=== PATIENT | female | born 1935 | race Caucasian/White ===

== ENCOUNTER → 2018-10-06 | Day surgery (SDC) | payer OTHER, MEDICARE ==
--- NOTE | 2018-10-11 10:58 | PATH ---
Surgical Pathology Report Patient Name: NEREYDA REEVES [facility]. Rec. #: [id number] /Age/Gender: 1935 (Age: 83) / F Account: [id number] Location: [facility] Taken: 10/06/2018 Received: 10/07/2018 Reported: 10/08/2018 Physicians: Roula Melissa M.D. Christophe Cristina M.D. Specimen(s) Received A: RIGHT AXILLA LYMPH NODE CORE BIOPSY B: LEFT AXILLA LYMPH NODE CORE BIOPSY Clinical History Nonpalpable lesion Ultrasound findings: Suspicious History of breast cancer Final Diagnosis A. AXILLA, LYMPH NODE, RIGHT, CORE BIOPSY: HETEROGENEOUS LYMPHOID TISSUE, NEGATIVE FOR CARCINOMA. IMMUNOHISTOCHEMICAL STAIN FOR CYTOKERATIN AE1/3 IS NEGATIVE. B. AXILLA, LYMPH NODE, LEFT, CORE BIOPSY: MINUTE FRAGMENTS OF LYMPHOID TISSUE IN A BACKGROUND OF SKELETAL MUSCLE AND FIBROADIPOSE TISSUE. NO CARCINOMA IDENTIFIED. IMMUNOHISTOCHEMICAL STAIN FOR CYTOKERATIN AE1/3 IS NEGATIVE. DEEPER LEVELS HAVE BEEN EXAMINED. Comment: Suggest clinical and radiologic correlation. Electronically Signed Louisa Corado M.D. Gross Description A. Received in formalin labeled "right axilla," are 2 voss-yellow, cylindrical portions of fibroadipose tissue averaging 1.0 cm in length and 0.1 cm in diameter. The specimens are submitted in toto in one cassette. B. Received in formalin labeled "left axilla," are 4 voss-yellow, cylindrical portions of fibroadipose tissue ranging from 0.2-0.6 cm in length and averaging 0.1 cm in diameter. The specimens are submitted in toto in one cassette. Time to formalin fixation: Less than one minute Total formalin fixation time: Approximately 28 hours. /10/07/2018 saudi10/07/2018
== END | disposition home or self-care (01) ==
LOC: JRADUS 12:37 → JRADUS-SUR 12:37
PROVIDERS: ATTEND Internal Medicine Hematology & Oncology
PROC: 07B63ZX Excision of Left Axillary Lymphatic, Percutaneous Approach, Diagnostic (ICD-10-PCS; principal; 2018-10-06)
PROC: 07B53ZX Excision of Right Axillary Lymphatic, Percutaneous Approach, Diagnostic (ICD-10-PCS; 2018-10-06)
DX: D36.0 Benign neoplasm of lymph nodes (principal); Z85.3 Personal history of malignant neoplasm of breast
CPT/HCPCS: 19083; 19084; 38505; 76942; 87899; 88305-TC; 88342-TC; A4648

== ENCOUNTER 2019-03-23 08:32 | Day surgery (SDC) | payer OTHER, MEDICARE ==
[2019-03-17 12:50] VITALS: BMI 22.8
[2019-03-23] MEDS: CIPROFLOXACIN 0.3% EYE DROPS 5 ML BOTTLE ONE ×3 (09:10→09:20)
[2019-03-23] MEDS: PHENYLEPHRINE 2.5% OPHTH SOLN 15 ML BOTTLE ONE ×3 (09:10→09:20)
[2019-03-23] MEDS: TROPICAMIDE 1% OPHTH SOLN 15 ML BOTTLE ONE ×3 (09:10→09:20)
[2019-03-23] MEDS: CYCLOPENTOLATE 2% OPHTH SOLN 2 ML BOTTLE ONE ×3 (09:10→09:20)
[2019-03-23] MEDS ORDERED: MIDAZOLAM HCL 2 MG/2 ML SINGLE DOSE VIAL ONE (10:26)
[2019-03-23] MEDS ORDERED: BSS (NA/CA/MG/K) BALANCED SALT SOLUTION OPHTH SOLN 15 ML BOTTLE ONE (10:28)
[2019-03-23] MEDS ORDERED: NEO/POLYMYX B SULF/DEXAMETH OPHTHALMIC 5ML BOTTLE ONE (10:28)
[2019-03-23] MEDS ORDERED: CARBACHOL 0.01% INTRA-OCULAR 1.5 ML VIAL ONE (10:28)
[2019-03-23 11:47] VITALS: TEMP 97.8
[2019-03-23 11:49] VITALS: BP 128/78; PULSE 77
--- NOTE | 2019-03-24 09:07 | OP ---
DATE OF OPERATION: 03/23/2019 OPERATIVE PROCEDURE: Lens phacoemulsification with posterior chamber intraocular lens placement, left eye. PREOPERATIVE DIAGNOSIS: Visually significant cataract of left eye. POSTOPERATIVE DIAGNOSIS: Visually significant cataract of left eye. SURGEON: Javier Layton MD ANESTHESIA: MAC. PROCEDURE: The patient was brought to the operating room and placed under monitored anesthesia care by Anesthesia. A drop of tetracaine was then placed over the left eye. The patient was then prepped and draped in the usual sterile manner. A speculum was then placed over the left eye. The eye was then well irrigated with copious amounts of BSS (balanced salt solution). The operating microscope was then moved into position. A paracentesis was performed using a 15-degree blade. At this point 0.5 mL of 1% preservative-free lidocaine was injected into the anterior chamber. Amvisc Plus was then injected into the anterior chamber. A clear corneal incision was then formed using a 2.2-mm keratome. A capsulorrhexis was then performed in a continuous circular fashion beginning with a cystotome, completed with an Utratas forceps. Hydrodissection was then performed using BSS on a cannula. The phaco probe was then introduced through the corneal wound and the cataract was removed using the phaco chop technique. Approximately 3 seconds of absolute phaco time was used. The remaining cortex was then removed using irrigation and aspiration with an I/A probe. The capsule was then filled with regular Amvisc and the capsule was noted to be intact. A previously selected foldable posterior chamber intraocular lens was then injected into the capsule through the corneal wound using a lens injector. It was then dialed into position using a Sinskey hook. The Amvisc was then removed using irrigation and aspiration. Miostat was then injected through the paracentesis to constrict the pupil. The paracentesis and corneal wound were then hydrated and noted to be watertight. A drop of Maxitrol was then placed over the eye. The speculum was removed and clear shield was taped over the eye. The patient tolerated the procedure well and there were no surgical complications. The patient was asked to follow up in my office the next day. JAVIER LAYTON M.D. [id number]
== END 2019-03-23 11:40 | disposition home or self-care (01) ==
LOC: FASU 08:32
PROVIDERS: ATTEND Ophthalmology
PROC: 08RK3JZ Replacement of Left Lens with Synthetic Substitute, Percutaneous Approach (ICD-10-PCS; principal; 2019-03-23 10:53)
DX: H26.8 Other specified cataract (principal)

== ENCOUNTER 2019-04-27 08:56 | Day surgery (SDC) | payer OTHER, MEDICARE ==
[2019-04-22 10:03] VITALS: BMI 22.8
[2019-04-27] MEDS ORDERED: MIDAZOLAM HCL 2 MG/2 ML SINGLE DOSE VIAL ONE (10:00)
[2019-04-27] MEDS: TROPICAMIDE 1% OPHTH SOLN 15 ML BOTTLE ONE ×3 (10:05→10:15)
[2019-04-27] MEDS: CYCLOPENTOLATE 2% OPHTH SOLN 2 ML BOTTLE ONE ×3 (10:05→10:15)
[2019-04-27] MEDS: PHENYLEPHRINE 2.5% OPHTH SOLN 15 ML BOTTLE ONE ×3 (10:05→10:15)
[2019-04-27] MEDS: CIPROFLOXACIN 0.3% EYE DROPS 5 ML BOTTLE ONE ×3 (10:05→10:15)
[2019-04-27] MEDS ORDERED: TETRACAINE 0.5% OPHTH SOLN 2 ML BOTTLE ONE (11:24)
[2019-04-27] MEDS ORDERED: LIDOCAINE 1% P/F 10 MG/ML VIAL ONE (11:24)
[2019-04-27] MEDS ORDERED: CARBACHOL 0.01% INTRA-OCULAR 1.5 ML VIAL ONE (11:25)
[2019-04-27] MEDS ORDERED: BSS (NA/CA/MG/K) BALANCED SALT SOLUTION OPHTH SOLN 15 ML BOTTLE ONE (11:25)
[2019-04-27] MEDS ORDERED: NEO/POLYMYX B SULF/DEXAMETH OPHTHALMIC 5ML BOTTLE ONE (11:25)
[2019-04-27] MEDS ORDERED: ACETAMINOPHEN 325 MG TABLET (FP) PO PRN (11:27)
[2019-04-27] MEDS ORDERED: ONDANSETRON 4 MG/2 ML VIAL IVPUSH PRN (11:27)
[2019-04-27] MEDS ORDERED: LACTATED RINGERS SOLUTION 1,000 ML IV SCH (11:30)
[2019-04-27 12:29] VITALS: TEMP 98
[2019-04-27 13:50] VITALS: BP 129/64; PULSE 82
--- NOTE | 2019-04-27 18:13 | OP ---
DATE OF OPERATION: 04/27/2019 OPERATIVE PROCEDURE: Lens Phacoemulsification with Posterior Chamber Intraocular Lens Placement, Right Eye PREOPERATIVE DIAGNOSIS: Visually Significant Cataract of Right Eye POSTOPERATIVE DIAGNOSIS: Visually Significant Cataract of Right Eye SURGEON: Javier Layton M.D. ANESTHESIA: MAC ANESTHESIOLOGIST: PROCEDURE: The patient was brought to the operating room and placed under monitored anesthesia care by Anesthesia. A drop of Tetracaine was then placed over the right eye. The patient was then prepped and draped in the usual sterile manner. A speculum was then placed over the right eye. The eye was then well irrigated with copious amounts of BSS (balanced salt solution). The operating microscope was then moved into position. A paracentesis was performed using a 15 degree blade. At this point 0.5 mL of 1% preservative free-lidocaine was injected into the anterior chamber. Amvisc plus was then injected into the anterior chamber. A clear corneal incision was then formed using a 2.2 mm keratome. A capsulorrhexis was then performed in a continuous circular fashion beginning with a cystotome completed with an Utratas forceps. Hydrodissection was then performed using BSS on a cannula. The phaco probe was then introduced through the corneal wound and the cataract was removed using the phaco chop technique. Approximately 3 seconds of absolute phaco time was used. The remaining cortex was then removed using irrigation and aspiration with an I/A probe. The capsule was then filled with regular Amvisc and the capsule was noted to be intact. A previously selected foldable posterior chamber intraocular lens was then injected into the capsule through the corneal wound using a lens injector. It was then dialed into position using a Sinskey hook. The Amvisc was then removed using irrigation and aspiration. Miostat was then injected through the paracentesis to constrict the pupil. The paracentesis and corneal wound were then hydrated and noted to be water tight. A drop of Maxitrol was then placed over the eye. The speculum was removed and clear shield was taped over the eye. The patient tolerated the procedure well and there were no surgical complications. The patient was asked to follow up in my office the next day. JAVIER LAYTON M.D. TANK/[id number]
== END 2019-04-27 13:20 | disposition home or self-care (01) ==
LOC: FASU 08:56
PROVIDERS: ATTEND Ophthalmology
PROC: 08RJ3JZ Replacement of Right Lens with Synthetic Substitute, Percutaneous Approach (ICD-10-PCS; principal; 2019-04-27 10:30)
DX: H26.8 Other specified cataract (principal)

== ENCOUNTER 2020-12-28 12:28 | Emergency (ER) | payer OTHER, MEDICARE ==
[2020-12-28 12:34] VITALS: TEMP 97.6; BMI 23.0
[2020-12-28 13:12] LABS: INR 1.02 (0.82-1.09); PROTHROMBIN TIME (PATIENT) 11.3 SEC (10.2-13.0)
[2020-12-28 13:21] LABS: ALBUMIN 3.9 g/dl (3.4-5.0); ALK PHOS 70 U/L (45-117); ANION GAP 10 MMOL/L (8-16); CALCIUM 8.7 mg/dl (8.5-10); CHLORIDE 95 mmol/L (98-107); CO2 27 mmol/L (21-32); CREATININE 0.9 mg/dl (0.55-1.3); GLUCOSE,RANDOM 115 mg/dl (74-106); SGPT/ALT 28 U/L (13-61); SODIUM 132 mmol/L (136-145); TOT PROT 6.7 g/dl (6.4-8.2)
[2020-12-28 13:23] LABS: SGOT/AST 51 U/L (15-37)
[2020-12-28 13:41] LABS: BASO % 4.9 % (0-2.0); EOS % 2.5 % (0-4.5); HEMATOCRIT 39.4 % (32.4-45.2); HEMOGLOBIN 13.2 GM/dl (10.7-15.3); LYMPH % 26.6 % (8-40); MCH 36.2 pg (25.7-33.7); MCHC 33.5 g/dl (32.0-36.0); MEAN CELL VOLUME 108.2 fl (80-96); MEAN PLT VOLUME 7.5 fl (7.5-11.1); MONO % 11.7 % (3.8-10.2); NEUT % 54.3 % (42.8-82.8); PLATELET COUNT 222 10^3/uL (134-434); RBC 3.64 M/mm3 (3.60-5.2); RDW 14.2 % (11.6-15.6); WHITE BLOOD COUNT 6.4 K/mm3 (4.0-10.8)
[2020-12-28 14:35] VITALS: BP 151/70; PULSE 68
== END 2020-12-28 15:01 | disposition home or self-care (01) ==
LOC: FER 12:28
DX: F41.9 Anxiety disorder, unspecified (principal)
CPT/HCPCS: 36415; 71045-TC-FY; 80053; 82550; 82553; 82607; 82746; 84484; 85025; 85610; 93005; 93010; 99285-25

== ENCOUNTER 2021-06-01 17:16 | Inpatient (IN) | payer OTHER, MEDICARE ==
[2021-06-01 17:25] VITALS: BMI 23.4
[2021-06-01 18:51] LABS: BASO % 0.3 % (0-2.0); EOS % 0.6 % (0-4.5); HEMATOCRIT 32.1 % (32.4-45.2); HEMOGLOBIN 11.1 GM/dL (10.7-15.3); LYMPH % 4.5 % (8-40); MCH 38.2 pg (25.7-33.7); MCHC 34.6 g/dl (32.0-36.0); MEAN CELL VOLUME 110.3 fl (80-96); MEAN PLT VOLUME 7.2 fl (7.5-11.1); MONO % 5.4 % (3.8-10.2); NEUT % 89.2 % (42.8-82.8); PLATELET COUNT 231 10^3/uL (134-434); RBC 2.91 M/mm3 (3.60-5.2); RDW 15.7 % (11.6-15.6); WHITE BLOOD COUNT 8.3 K/mm3 (4.0-10.0)
[2021-06-01 19:03] LABS: CALCIUM 7.9 mg/dL (8.5-10.1)
[2021-06-01 19:04] LABS: ALBUMIN 3.1 g/dl (3.4-5.0); BLOOD UREA NITROGEN 16.6 mg/dL (7-18)
[2021-06-01 19:08] LABS: BILIRUBIN,TOTAL 0.9 mg/dL (0.2-1); CREATININE 0.7 mg/dL (0.55-1.3); TOT PROT 6.2 g/dl (6.4-8.2)
[2021-06-01 19:09] LABS: ACTIVATED PTT 29.3 SECONDS (25.2-36.5); INR 1.08 (0.83-1.09); PROTHROMBIN TIME (PATIENT) 12.4 SEC (9.7-13.0)
[2021-06-01 19:12] LABS: N-TERMINAL BNP 941.4 pg/ml (5-450)
[2021-06-01 20:07] LABS: ANISOCYTOSIS 2+; MACROCYTOSIS 2+; OVALOCYTE 2+
[2021-06-01] MEDS ORDERED: morphine CARPU-JECT 2 MG/1 ML DISP.SYRIN IVPUSH ONE (21:58)
[2021-06-02] MEDS: SODIUM CHLORIDE 1,000 ML IV SCH ×2 (02:10→21:48)
[2021-06-02] MEDS: HYDROCHLOROTHIAZIDE 12.5 MG CAPSULE (FP) PO SCH (06:23)
[2021-06-02 07:31] LABS: BASO % 0.7 % (0-2.0); EOS % 3.4 % (0-4.5); HEMATOCRIT 30.8 % (32.4-45.2); HEMOGLOBIN 10.7 GM/dL (10.7-15.3); LYMPH % 20.6 % (8-40); MCH 38.4 pg (25.7-33.7); MCHC 34.7 g/dl (32.0-36.0); MEAN CELL VOLUME 110.7 fl (80-96); MEAN PLT VOLUME 7.3 fl (7.5-11.1); MONO % 10.6 % (3.8-10.2); NEUT % 64.7 % (42.8-82.8); PLATELET COUNT 211 10^3/uL (134-434); RBC 2.78 M/mm3 (3.60-5.2); RDW 15.5 % (11.6-15.6); RETICULOCYTES 1.94 % (0.5-1.5); WHITE BLOOD COUNT 7.1 K/mm3 (4.0-10.0)
[2021-06-02 07:38] LABS: ALBUMIN 2.8 g/dl (3.4-5.0); BLOOD UREA NITROGEN 13.5 mg/dL (7-18); CALCIUM 8.2 mg/dL (8.5-10.1); MAGNESIUM 2.1 mg/dL (1.8-2.4); PHOSPHOROUS 3.7 mg/dL (2.5-4.9)
[2021-06-02 07:42] LABS: CREATININE 0.8 mg/dL (0.55-1.3)
[2021-06-02 07:43] LABS: BILIRUBIN,TOTAL 0.8 mg/dL (0.2-1); TOT PROT 5.6 g/dl (6.4-8.2)
[2021-06-02] MEDS ORDERED: HYDROCHLOROTHIAZIDE 12.5 MG CAPSULE (FP) PO SCH (10:00)
[2021-06-02] MEDS ORDERED: metoPROLOL SUCCINATE 25 MG TAB.SR.24H (FP) PO SCH ×2 (10:00→22:00)
[2021-06-02] MEDS ORDERED: ENOXAPARIN NA (PORCINE) 40 MG/0.4 ML DISP.SYRIN SQ ONE (17:30)
[2021-06-03 01:16] LABS: PH,URINE 6.5 (5.0-8.0); URINE APPEARANCE CLEAR; URINE BILIRUBIN NEGATIVE (NEGATIVE); URINE COLOR YELLOW; URINE GLUCOSE (UA) NEGATIVE (NEGATIVE); URINE KETONE NEGATIVE (NEGATIVE); URINE LEUK ESTERASE NEGATIVE (NEGATIVE); URINE NITRITE NEGATIVE (NEGATIVE); URINE PROTEIN NEGATIVE (NEGATIVE); URINE UROBILINOGEN 0.2 mg/dL (0.2-1.0)
[2021-06-03] MEDS: SODIUM CHLORIDE 1,000 ML IV SCH ×2 (05:49→17:30)
[2021-06-03] MEDS: HYDROCHLOROTHIAZIDE 12.5 MG CAPSULE (FP) PO SCH ×2 (05:49→06:14)
[2021-06-03] MEDS ORDERED: THYROID 30 MG TABLET PO SCH (07:00)
[2021-06-03 08:57] LABS: BASO % 1.3 % (0-2.0); EOS % 5.8 % (0-4.5); HEMOGLOBIN 10.6 GM/dL (10.7-15.3); LYMPH % 20.5 % (8-40); MCH 38.8 pg (25.7-33.7); MCHC 35.3 g/dl (32.0-36.0); MEAN CELL VOLUME 110.1 fl (80-96); MEAN PLT VOLUME 7.6 fl (7.5-11.1); MONO % 12.2 % (3.8-10.2); NEUT % 60.2 % (42.8-82.8); PLATELET COUNT 206 10^3/uL (134-434); RBC 2.72 M/mm3 (3.60-5.2); RDW 15.4 % (11.6-15.6); WHITE BLOOD COUNT 5.9 K/mm3 (4.0-10.0)
[2021-06-03 09:17] LABS: ALBUMIN 2.7 g/dl (3.4-5.0); CALCIUM 8.3 mg/dL (8.5-10.1)
[2021-06-03 09:18] LABS: MAGNESIUM 1.9 mg/dL (1.8-2.4)
[2021-06-03 09:20] LABS: CREATININE 0.6 mg/dL (0.55-1.3); PHOSPHOROUS 3.3 mg/dL (2.5-4.9)
[2021-06-03 09:22] LABS: TOT PROT 5.2 g/dl (6.4-8.2)
[2021-06-03 09:23] LABS: BILIRUBIN,TOTAL 0.9 mg/dL (0.2-1)
[2021-06-03] MEDS ORDERED: ceFAZolin SODIUM 1 GM VIAL IVPB ONE (12:04)
[2021-06-03] MEDS ORDERED: PROPOFOL 20 ML ONE ×2 (12:24)
[2021-06-03] MEDS ORDERED: KETAMINE HCL 200 MG/20 ML VIAL ONE (12:24)
[2021-06-03] MEDS ORDERED: BUPIVACAINE HCL/PF 0.5% (5MG/ML) 10 ML VIAL ONE (12:26)
[2021-06-03] MEDS ORDERED: ceFAZolin SODIUM 1 GM VIAL ONE ×2 (13:53→20:24)
[2021-06-03] MEDS ORDERED: ONDANSETRON 4 MG/2 ML VIAL ONE (13:53)
[2021-06-03] MEDS ORDERED: oxyCODONE HCL 5 MG TABLET PO PRN ×2 (14:29)
[2021-06-03] MEDS ORDERED: ONDANSETRON 4 MG/2 ML VIAL IVPUSH PRN (14:30)
[2021-06-03] MEDS ORDERED: LACTATED RINGERS SOLUTION 1,000 ML IV SCH (14:30)
[2021-06-03] MEDS ORDERED: PROMETHAZINE HCL 25 MG/1 ML VIAL ONE (15:12)
[2021-06-03] MEDS ORDERED: PROMETHAZINE HCL 25 MG/1 ML VIAL IVPB ONE ×3 (15:18)
[2021-06-03] MEDS ORDERED: PROMETHAZINE HCL 25 MG/1 ML VIAL IVPUSH PRN (15:20)
[2021-06-03] MEDS: CEFAZOLIN 2 GM in DEXTROSE 5%-WATER 100 ML IVPB SCH (17:30)
[2021-06-03] MEDS: metoPROLOL SUCCINATE 25 MG TAB.SR.24H (FP) PO SCH (21:11)
[2021-06-03] MEDS ORDERED: HYDROXYCHLOROQUINE SO4 200 MG TABLET (FP) PO SCH ×2 (22:00)
[2021-06-04] MEDS ORDERED: ceFAZolin SODIUM 1 GM VIAL ONE (01:46)
[2021-06-04] MEDS ORDERED: DEXTROSE 5%-WATER 100 ML IVPB ONE (01:46)
[2021-06-04] MEDS: CEFAZOLIN 2 GM in DEXTROSE 5%-WATER 100 ML IVPB SCH (02:30)
[2021-06-04] MEDS: ACETAMINOPHEN 325 MG TABLET (FP) PO SCH ×3 (06:57→17:36)
[2021-06-04] MEDS: THYROID 30 MG TABLET PO SCH (06:57)
[2021-06-04] MEDS ORDERED: HYDROCHLOROTHIAZIDE 12.5 MG CAPSULE (FP) PO SCH (07:00)
[2021-06-04] MEDS: ENOXAPARIN NA (PORCINE) 40 MG/0.4 ML DISP.SYRIN SQ SCH (10:18)
[2021-06-04] MEDS ORDERED: TOCILIZUMAB IJ SCH (15:45)
[2021-06-04] MEDS ORDERED: [UNRECOGNIZED DRUG - OTHER] IJ SCH (15:45)
[2021-06-04] MEDS ORDERED: METHOTREXATE 2.5 MG TABLET PO SCH (15:45)
[2021-06-04] MEDS: SODIUM CHLORIDE 1,000 ML IV SCH ×2 (16:49→21:49)
[2021-06-04] MEDS: metoPROLOL SUCCINATE 25 MG TAB.SR.24H (FP) PO SCH (21:48)
[2021-06-04] MEDS: ATORVASTATIN CA 40 MG TABLET (FP) PO SCH (21:48)
[2021-06-05] MEDS: ACETAMINOPHEN 325 MG TABLET (FP) PO SCH ×4 (00:15→17:44)
[2021-06-05] MEDS: THYROID 30 MG TABLET PO SCH (06:52)
[2021-06-05 07:13] LABS: CALCIUM 7.5 mg/dL (8.5-10.1)
[2021-06-05 07:14] LABS: ALBUMIN 2.2 g/dl (3.4-5.0); BLOOD UREA NITROGEN 9.6 mg/dL (7-18); MAGNESIUM 1.8 mg/dL (1.8-2.4); PHOSPHOROUS 3.2 mg/dL (2.5-4.9)
[2021-06-05 07:16] LABS: BILIRUBIN,TOTAL 0.7 mg/dL (0.2-1); TOT PROT 4.6 g/dl (6.4-8.2)
[2021-06-05 07:17] LABS: CREATININE 0.6 mg/dL (0.55-1.3)
[2021-06-05] MEDS ORDERED: POTASSIUM CHLORIDE TABS 20 MEQ TABLET.ER (FP) PO ONE (08:17)
[2021-06-05] MEDS: ENOXAPARIN NA (PORCINE) 40 MG/0.4 ML DISP.SYRIN SQ SCH (09:41)
[2021-06-05] MEDS: ASPIRIN 81 MG CHEWABLE TABLETS PO SCH (09:41)
[2021-06-05] MEDS: FOLIC ACID 1 MG TABLET (FP) PO SCH (09:41)
[2021-06-05 10:09] LABS: BASO % 0.4 % (0-2.0); EOS % 3.7 % (0-4.5); HEMOGLOBIN 9.3 GM/dL (10.7-15.3); LYMPH % 9.1 % (8-40); MCH 39.2 pg (25.7-33.7); MCHC 35.6 g/dl (32.0-36.0); MEAN CELL VOLUME 109.9 fl (80-96); MONO % 9.3 % (3.8-10.2); NEUT % 77.5 % (42.8-82.8); PLATELET COUNT 175 10^3/uL (134-434); RBC 2.37 M/mm3 (3.60-5.2); RDW 15.5 % (11.6-15.6); WHITE BLOOD COUNT 9.3 K/mm3 (4.0-10.0)
[2021-06-05 12:08] LABS: SARS-CoV-2 NAA Not Detected (Not Detected)
[2021-06-05] MEDS: SODIUM CHLORIDE 1,000 ML IV SCH ×2 (12:25→14:44)
[2021-06-05] MEDS: ATORVASTATIN CA 40 MG TABLET (FP) PO SCH (21:24)
[2021-06-05] MEDS: metoPROLOL SUCCINATE 25 MG TAB.SR.24H (FP) PO SCH (21:24)
[2021-06-06] MEDS: ACETAMINOPHEN 325 MG TABLET (FP) PO SCH ×2 (00:02→06:14)
[2021-06-06] MEDS: THYROID 30 MG TABLET PO SCH (06:21)
[2021-06-06 08:38] LABS: BASO % 0.6 % (0-2.0); EOS % 4.2 % (0-4.5); HEMATOCRIT 26.1 % (32.4-45.2); HEMOGLOBIN 8.9 GM/dL (10.7-15.3); LYMPH % 11.1 % (8-40); MCH 38.1 pg (25.7-33.7); MCHC 34.2 g/dl (32.0-36.0); MEAN CELL VOLUME 111.4 fl (80-96); MEAN PLT VOLUME 7.4 fl (7.5-11.1); MONO % 8.1 % (3.8-10.2); PLATELET COUNT 186 10^3/uL (134-434); RBC 2.34 M/mm3 (3.60-5.2); RDW 15.8 % (11.6-15.6); WHITE BLOOD COUNT 7.9 K/mm3 (4.0-10.0)
[2021-06-06 08:54] LABS: ALBUMIN 2.1 g/dl (3.4-5.0); BLOOD UREA NITROGEN 8.8 mg/dL (7-18)
[2021-06-06 08:55] LABS: PHOSPHOROUS 2.8 mg/dL (2.5-4.9)
[2021-06-06 08:57] LABS: BILIRUBIN,TOTAL 0.7 mg/dL (0.2-1); TOT PROT 4.4 g/dl (6.4-8.2)
[2021-06-06 08:58] LABS: CREATININE 0.4 mg/dL (0.55-1.3)
[2021-06-06] MEDS: ENOXAPARIN NA (PORCINE) 40 MG/0.4 ML DISP.SYRIN SQ SCH (09:45)
[2021-06-06] MEDS: ASPIRIN 81 MG CHEWABLE TABLETS PO SCH ×2 (09:45→09:48)
[2021-06-06] MEDS: FOLIC ACID 1 MG TABLET (FP) PO SCH (09:45)
[2021-06-06 12:54] VITALS: BP 115/53; PULSE 68; TEMP 98.3
== END 2021-06-06 12:59 | DRG 956 ==
LOC: JER 17:16 → SUPCPDRO 17:16 → JERBED 21:46 → J4W 06-02 01:23 → OBSVTOIN 06-03 09:44
PROVIDERS: ADMIT Internal Medicine; ATTEND Internal Medicine
PROC: 0QS706Z Reposition Left Upper Femur with Intramedullary Internal Fixation Device, Open Approach (ICD-10-PCS; principal; 2021-06-03 12:00)
DX: S72.142A Displaced intertrochanteric fracture of left femur, initial encounter for closed fracture (principal); S32.592A Other specified fracture of left pubis, initial encounter for closed fracture; G45.9 Transient cerebral ischemic attack, unspecified; M06.9 Rheumatoid arthritis, unspecified; E03.9 Hypothyroidism, unspecified; D64.9 Anemia, unspecified; I10 Essential (primary) hypertension; E78.5 Hyperlipidemia, unspecified; W18.39XA Other fall on same level, initial encounter; Y92.008 Other place in unspecified non-institutional (private) residence as the place of occurrence of the external cause; Z85.3 Personal history of malignant neoplasm of breast; Z96.652 Presence of left artificial knee joint; I35.0 Nonrheumatic aortic (valve) stenosis
CPT/HCPCS: 36415; 70450-TC; 70551-TC; 72125-TC; 72170-TC-FY; 73552-TC-LT-FY; 73562-TC-LT-FY; 73562-TC-RT-FY; 73700-TC-RT; 73718-TC-LT; 76000-TC-FY; 80053; 80061; 81003; 82607; 82728; 82746; 83036; 83540; 83550; 83735; 83880; 84100; 84439; 84443; 84484; 85025; 85045; 85610; 85730; 86850; 86900; 86901; 87086; 93005; 93010; 93306-TC; 93880-TC; 93971-TC; 94760; 97116-GP; 97162-GP; 99285-25; C9803-CS; G0378; U0003; U0005

== ENCOUNTER 2022-05-05 19:16 | Observation (INO) | payer OTHER, MEDICARE ==
[2022-05-05] MEDS ORDERED: ACETAMINOPHEN 325 MG TABLET (FP) PO ONE (19:34)
[2022-05-05] MEDS ORDERED: ACETAMINOPHEN 325 MG TABLET (FP) ONE (19:35)
[2022-05-05 20:41] LABS: HEMATOCRIT 28.9 % (32.4-45.2); HEMOGLOBIN 10.3 G/dL (10.7-15.3); MCHC 35.5 g/dl (32.0-36.0); MEAN CELL VOLUME 116.7 fl (80-96); MEAN PLT VOLUME 6.8 fl (7.5-11.1); PLATELET COUNT 154.5 10^3/uL (134-434); RBC 2.48 10^6/uL (3.60-5.2); RDW 13.7 % (11.6-15.6)
[2022-05-05 20:51] LABS: ALBUMIN 3.7 g/dl (3.4-5.0); BILIRUBIN,TOTAL 0.7 mg/dl (0.2-1); CALCIUM 8.8 mg/dl (8.5-10); CREATININE 0.7 mg/dl (0.55-1.3); TOT PROT 5.9 g/dl (6.4-8.2)
[2022-05-05 20:54] LABS: MCH 41.4 pg (25.7-33.7)
[2022-05-05 22:35] LABS: PLATELET ESTIMATE ADEQUATE
[2022-05-05 23:43] VITALS: BMI 22.0
[2022-05-06] MEDS ORDERED: ACETAMINOPHEN 325 MG TABLET (FP) PO PRN (14:05)
[2022-05-07 02:39] VITALS: RESP 18
[2022-05-07] MEDS ORDERED: HYDROXYCHLOROQUINE SO4 200 MG TABLET (FP) PO SCH (10:15)
[2022-05-07] MEDS ORDERED: MULTIVITAMINS (DAILY MVI) TABLET (FP) PO SCH (10:15)
[2022-05-07] MEDS ORDERED: FOLIC ACID 1 MG TABLET (FP) PO SCH (10:15)
[2022-05-07] MEDS ORDERED: CEFUROXIME AXETIL 500 MG TABLET PO SCH (11:15)
[2022-05-07 13:58] VITALS: BP 143/66; PULSE 84; TEMP 98.4
[2022-05-07 17:05] LABS: CALCIUM OXALATE CRYSTALS FEW /hpf (NONE SEEN)
== END 2022-05-07 16:06 | disposition home or self-care (01) ==
LOC: FER 19:16 → FM/S 20:43
PROVIDERS: ADMIT Internal Medicine
DX: S52.201A Unspecified fracture of shaft of right ulna, initial encounter for closed fracture (principal); Z85.3 Personal history of malignant neoplasm of breast; E03.9 Hypothyroidism, unspecified; M06.9 Rheumatoid arthritis, unspecified; Y99.8 Other external cause status; Z86.73 Personal history of transient ischemic attack (TIA), and cerebral infarction without residual deficits
CPT/HCPCS: 36415; 71045-TC-FY; 73070-TC-RT-FY; 73090-TC-RT-FY; 80053; 81003; 81015; 85027; 87086; 93005; 97116-GP; 97162-GP; 99285-25; C9803-CS; G0378; U0003; U0005

== ENCOUNTER 2022-06-30 07:49 | Inpatient (IN) | payer OTHER, MEDICARE ==
[2022-06-30] MEDS ORDERED: MECLIZINE HCL 25 MG TABLET (FP) PO ONE (07:56)
[2022-06-30] MEDS ORDERED: SODIUM CHLORIDE 0.9% 500 ML INFUS.BAG IV ONE (07:56)
[2022-06-30] MEDS ORDERED: MECLIZINE HCL 25 MG TABLET (FP) ONE (08:03)
[2022-06-30] MEDS ORDERED: ONDANSETRON 4 MG/2 ML VIAL IVPUSH ONE (08:51)
[2022-06-30] MEDS ORDERED: ONDANSETRON 4 MG/2 ML VIAL ONE (09:04)
[2022-06-30 09:06] LABS: HEMATOCRIT 32.3 % (32.4-45.2); HEMOGLOBIN 10.6 G/dL (10.7-15.3); MCH 36.2 pg (25.7-33.7); MCHC 32.8 g/dl (32.0-36.0); MEAN CELL VOLUME 110.1 fl (80-96); MEAN PLT VOLUME 7.7 fl (7.5-11.1); PLATELET COUNT 183.6 10^3/uL (134-434); RBC 2.93 10^6/uL (3.60-5.2); RDW 13.5 % (11.6-15.6); WHITE BLOOD COUNT 6.3 10^3/uL (4.0-10.8)
[2022-06-30 09:20] LABS: ALBUMIN 3.6 g/dl (3.4-5.0); BILIRUBIN,TOTAL 0.6 mg/dl (0.2-1); CALCIUM 8.6 mg/dl (8.5-10); CREATININE 0.7 mg/dl (0.55-1.3); POTASSIUM 3.8 mmol/L (3.5-5.1); TOT PROT 5.8 g/dl (6.4-8.2)
[2022-06-30] MEDS ORDERED: ASPIRIN 81 MG CHEWABLE TABLETS PO ONE (10:06)
[2022-06-30] MEDS ORDERED: ACETAMINOPHEN 325 MG TABLET (FP) PO ONE (10:06)
[2022-06-30] MEDS ORDERED: ASPIRIN 81 MG CHEWABLE TABLETS ONE (10:08)
[2022-06-30] MEDS ORDERED: ACETAMINOPHEN 325 MG TABLET (FP) ONE (10:08)
[2022-06-30 10:09] LABS: PLATELET ESTIMATE ADEQUATE
[2022-06-30] MEDS ORDERED: amLODIPine BESYLATE 5 MG TABLET (FP) PO ONE (11:10)
[2022-06-30] MEDS ORDERED: amLODIPine BESYLATE 5 MG TABLET (FP) ONE (11:26)
[2022-06-30 14:17] VITALS: BMI 20.9
[2022-06-30] MEDS: HYDROXYCHLOROQUINE SO4 200 MG TABLET (FP) PO SCH (21:34)
[2022-06-30] MEDS: methylPREDNISolone 4 MG TABLET PO SCH (21:35)
[2022-06-30] MEDS ORDERED: methylPREDNISolone 2 MG TABLET PO SCH (22:00)
[2022-07-01 08:47] LABS: ALBUMIN 3.1 g/dl (3.4-5.0); BILIRUBIN,TOTAL 0.5 mg/dl (0.2-1); CALCIUM 8.3 mg/dl (8.5-10); CREATININE 0.7 mg/dl (0.55-1.3); MAGNESIUM 1.9 mg/dL (1.8-2.4); POTASSIUM 4.4 mmol/L (3.5-5.1); TOT PROT 5.1 g/dl (6.4-8.2)
[2022-07-01 09:32] LABS: BASO % 1.1 % (0-2.0); EOS % 1.3 % (0-4.5); HEMATOCRIT 29.7 % (32.4-45.2); HEMOGLOBIN 10.2 GM/dL (10.7-15.3); LYMPH % 15.4 % (8-40); MCH 36.1 pg (25.7-33.7); MCHC 34.3 g/dl (32.0-36.0); MEAN CELL VOLUME 105.3 fl (80-96); MEAN PLT VOLUME 7.1 fl (7.5-11.1); MONO % 8.6 % (3.8-10.2); NEUT % 73.6 % (42.8-82.8); PLATELET COUNT 171 10^3/uL (134-434); RBC 2.83 M/mm3 (3.60-5.2); RDW 13.9 % (11.6-15.6); WHITE BLOOD COUNT 6.7 K/mm3 (4.0-10.0)
[2022-07-01] MEDS: methylPREDNISolone 4 MG TABLET PO SCH ×2 (09:57→21:23)
[2022-07-01] MEDS: ENOXAPARIN NA (PORCINE) 40 MG/0.4 ML DISP.SYRIN SQ SCH (09:58)
[2022-07-01] MEDS: HYDROXYCHLOROQUINE SO4 200 MG TABLET (FP) PO SCH ×2 (09:58→21:23)
[2022-07-01] MEDS ORDERED: amLODIPine BESYLATE 5 MG TABLET (FP) PO SCH (10:00)
[2022-07-01 10:13] LABS: ANISOCYTOSIS 1+; MACROCYTOSIS 1+
[2022-07-01 17:09] LABS: N-TERMINAL BNP 1640.8 pg/ml (5-450)
[2022-07-01] MEDS: ACETAMINOPHEN 325 MG TABLET (FP) PO PRN (21:23)
[2022-07-02 08:41] LABS: ALBUMIN 3.3 g/dl (3.4-5.0); BILIRUBIN,TOTAL 0.5 mg/dl (0.2-1); CALCIUM 8.7 mg/dl (8.5-10); CREATININE 0.6 mg/dl (0.55-1.3); POTASSIUM 4.2 mmol/L (3.5-5.1); TOT PROT 5.4 g/dl (6.4-8.2)
[2022-07-02] MEDS: ENOXAPARIN NA (PORCINE) 40 MG/0.4 ML DISP.SYRIN SQ SCH (09:37)
[2022-07-02] MEDS: methylPREDNISolone 4 MG TABLET PO SCH ×2 (09:37→21:11)
[2022-07-02] MEDS: HYDROXYCHLOROQUINE SO4 200 MG TABLET (FP) PO SCH ×2 (09:37→21:11)
[2022-07-02 10:39] LABS: BASO % 0.9 % (0-2.0); EOS % 1.3 % (0-4.5); HEMATOCRIT 31.2 % (32.4-45.2); MCHC 35.3 g/dl (32.0-36.0); MEAN CELL VOLUME 104.9 fl (80-96); MEAN PLT VOLUME 7.8 fl (7.5-11.1); MONO % 9.3 % (3.8-10.2); NEUT % 71.5 % (42.8-82.8); PLATELET COUNT 188 10^3/uL (134-434); RBC 2.97 M/mm3 (3.60-5.2); RDW 13.8 % (11.6-15.6); WHITE BLOOD COUNT 7.6 K/mm3 (4.0-10.0)
[2022-07-02] MEDS: FUROSEMIDE 40 MG/4 ML INJECTABLE VIAL IVPUSH SCH (12:14)
[2022-07-03] MEDS: ACETAMINOPHEN 325 MG TABLET (FP) PO PRN (04:25)
[2022-07-03 05:51] VITALS: RESP 18
[2022-07-03] MEDS: methylPREDNISolone 4 MG TABLET PO SCH (09:39)
[2022-07-03] MEDS: HYDROXYCHLOROQUINE SO4 200 MG TABLET (FP) PO SCH (09:39)
[2022-07-03] MEDS: FUROSEMIDE 40 MG/4 ML INJECTABLE VIAL IVPUSH SCH (09:40)
[2022-07-03] MEDS: ENOXAPARIN NA (PORCINE) 40 MG/0.4 ML DISP.SYRIN SQ SCH (09:40)
[2022-07-03 14:16] VITALS: BP 133/79; PULSE 88; TEMP 98.4
== END 2022-07-03 16:59 | disposition home or self-care (01) | DRG 312 ==
LOC: FER 07:49 → FM/S 10:26 → OBSVTOIN 11:16
PROVIDERS: ADMIT Internal Medicine
DX: R55 Syncope and collapse (principal); I24.8 Other forms of acute ischemic heart disease; I50.32 Chronic diastolic (congestive) heart failure; I16.0 Hypertensive urgency; M06.9 Rheumatoid arthritis, unspecified; M19.90 Unspecified osteoarthritis, unspecified site; I73.9 Peripheral vascular disease, unspecified; I35.0 Nonrheumatic aortic (valve) stenosis
CPT/HCPCS: 36415; 70450-TC; 71045-TC-FY; 80053; 81003; 83036; 83735; 83880; 84100; 84443; 84484; 85025; 85027; 87086; 93005; 93306-TC; 97116-GP; 97161-GP; 99285-25; C9803-CS; G0378; U0003; U0005

== ENCOUNTER 2024-05-12 18:44 | Inpatient (IN) | payer OTHER, MEDICARE ==
[2024-05-12 19:51] LABS: HEMATOCRIT 36.2 % (34.1-44.9); MCHC 33.1 g/dl (32.2-35.5); MEAN CELL VOLUME 101.4 fl (79.4-94.8); MEAN PLT VOLUME 9.4 fl (9.4-12.3); PLATELET COUNT 189 x10^3/uL (182-369); RDW 15.3 % (12.5-17.0)
[2024-05-12 20:02] LABS: ALBUMIN 3.7 g/dl (3.4-5.0); BILIRUBIN,TOTAL 0.4 mg/dl (0.2-1); CALCIUM 8.5 mg/dl (8.5-10.1); CREATININE 0.8 mg/dl (0.6-1.3); POTASSIUM 4.5 mmol/L (3.5-5.1)
[2024-05-12] MEDS ORDERED: CLINDAMYCIN 600MG PREMIX IVPB 600 MG/50 ML BAG IVPB ONE (20:10)
[2024-05-12] MEDS: CLINDAMYCIN 600MG PREMIX IVPB 600 MG/50 ML BAG IVPB ONE (20:20)
[2024-05-12] MEDS ORDERED: DOCUSATE SODIUM 100 MG CAPSULE (FP) PO PRN (20:57)
[2024-05-12 23:01] LABS: ERYTHROCYTE SEDIMENTATION RATE 6 mm/hr (0-30)
[2024-05-13 02:48] VITALS: BMI 17.8
[2024-05-13] MEDS ORDERED: CLINDAMYCIN IVPB 300 MG in DEXTROSE 5%-WATER - 48 ML IVPB SCH (07:30)
[2024-05-13 08:40] LABS: ABSOLUTE IMMATURE GRANULOCYTES 0.02 x10^3/uL (0.0-0.031); BASOPHILS # 0.07 x10^3/uL (0.01-0.08); EOSINOPHIL % 1.7 % (0.7-5.8); EOSINOPHILS # 0.12 x10^3/uL (0.04-0.36); HEMATOCRIT 34.4 % (34.1-44.9); HEMOGLOBIN 11.5 g/dL (11.2-15.7); MCHC 33.4 g/dl (32.2-35.5); MEAN CELL VOLUME 100.9 fl (79.4-94.8); MEAN PLT VOLUME 9.8 fl (9.4-12.3); MONOCYTE # 0.86 x10^3/uL (0.24-0.86); MONOCYTE % 12.1 % (4.7-12.5); PLATELET COUNT 175 x10^3/uL (182-369); RDW 15.4 % (12.5-17.0)
[2024-05-13 09:10] LABS: CALCIUM 8.5 mg/dl (8.5-10.1); CREATININE 0.7 mg/dl (0.6-1.3); MAGNESIUM 2.1 mg/dL (1.8-2.4); PHOSPHOROUS 3.2 (2.5-4.9)
[2024-05-13] MEDS: CEFAZOLIN 1 GM in DEXTROSE 5%-WATER - 50 ML IVPB SCH (10:17)
[2024-05-13] MEDS: methylPREDNISolone 4 MG TABLET PO SCH (12:36)
[2024-05-13] MEDS: LACTOBACILLUS ACIDOPHILUS 1 TABLET PO SCH (12:36)
[2024-05-13] MEDS: HYDROXYCHLOROQUINE SO4 200 MG TABLET (FP) PO SCH (12:36)
[2024-05-13] MEDS: DOXYCYCLINE INJECTION 100 MG in DEXTROSE 5%-WATER 100 ML IVPB SCH (12:36)
[2024-05-13] MEDS: METHOTREXATE 2.5 MG TABLET PO SCH (12:37)
[2024-05-13] MEDS: HEPARIN NA (PORCINE) 5,000 UNITS/ML 1ML VIAL SQ SCH (21:36)
[2024-05-14 08:41] LABS: ABSOLUTE IMMATURE GRANULOCYTES 0.01 x10^3/uL (0.0-0.031); BASOPHILS # 0.05 x10^3/uL (0.01-0.08); EOSINOPHIL % 1.5 % (0.7-5.8); EOSINOPHILS # 0.15 x10^3/uL (0.04-0.36); HEMATOCRIT 35.6 % (34.1-44.9); HEMOGLOBIN 11.8 g/dL (11.2-15.7); MCHC 33.1 g/dl (32.2-35.5); MEAN PLT VOLUME 9.6 fl (9.4-12.3); MONOCYTE # 0.69 x10^3/uL (0.24-0.86); MONOCYTE % 6.8 % (4.7-12.5); PLATELET COUNT 159 x10^3/uL (182-369); RDW 15.4 % (12.5-17.0)
[2024-05-14 09:01] LABS: CALCIUM 8.3 mg/dl (8.5-10.1); CREATININE 0.6 mg/dl (0.6-1.3); POTASSIUM 4.5 mmol/L (3.5-5.1)
[2024-05-15 07:55] LABS: ABSOLUTE IMMATURE GRANULOCYTES 0.03 x10^3/uL (0.0-0.031); BASOPHILS # 0.06 x10^3/uL (0.01-0.08); EOSINOPHIL % 1.6 % (0.7-5.8); EOSINOPHILS # 0.12 x10^3/uL (0.04-0.36); HEMATOCRIT 35.4 % (34.1-44.9); HEMOGLOBIN 11.8 g/dL (11.2-15.7); MCHC 33.3 g/dl (32.2-35.5); MEAN CELL VOLUME 101.4 fl (79.4-94.8); MEAN PLT VOLUME 9.6 fl (9.4-12.3); MONOCYTE # 0.46 x10^3/uL (0.24-0.86); PLATELET COUNT 167 x10^3/uL (182-369); RDW 15.2 % (12.5-17.0)
[2024-05-15 09:05] LABS: CALCIUM 8.4 mg/dl (8.5-10.1); CREATININE 0.6 mg/dl (0.6-1.3); POTASSIUM 4.3 mmol/L (3.5-5.1)
[2024-05-15] MEDS: ONDANSETRON 4 MG/2 ML VIAL IVPUSH PRN (12:48)
[2024-05-17] MEDS: GENTAMICIN SO4 0.1% TOP CREAM 15 GM/TUBE TP SCH (21:16)
[2024-05-19] MEDS: POLYETHYLENE GLYCOL (HEALTHYLAX) 3350 17 GM PACKET PO SCH (16:54)
[2024-05-19] MEDS: SENNOSIDES 8.6MG TABLET (FP) PO SCH (16:54)
[2024-05-19] MEDS: BENZOCAINE/MENTHOL (CHLORASEPTIC ) LOZENGE MM PRN (18:48)
[2024-05-20 04:45] VITALS: RESP 18
[2024-05-20] MEDS: ACETAMINOPHEN 325 MG TABLET (FP) PO PRN (05:37)
[2024-05-20 10:42] VITALS: BP 122/72; PULSE 78; TEMP 97.9
== END 2024-05-20 10:55 | DRG 603 ==
LOC: FER 18:44 → FM/S 20:32 → OBSVTOIN 05-13 15:50
PROVIDERS: ADMIT Hospitalist
PROC: 0HDKXZZ Extraction of Right Lower Leg Skin, External Approach (ICD-10-PCS; principal; 2024-05-14)
DX: L03.115 Cellulitis of right lower limb (principal); D84.9 Immunodeficiency, unspecified; L97.919 Non-pressure chronic ulcer of unspecified part of right lower leg with unspecified severity; M06.9 Rheumatoid arthritis, unspecified; Z85.3 Personal history of malignant neoplasm of breast; E03.9 Hypothyroidism, unspecified; L08.9 Local infection of the skin and subcutaneous tissue, unspecified; E78.5 Hyperlipidemia, unspecified
CPT/HCPCS: 0241U-QW; 36415; 73590-TC-RT-FY; 80048; 80053; 83735; 84100; 84439; 84443; 85025; 85651; 86140; 87070; 87186; 87205; 97116-GP; 97162-GP; 99285-25; G0378; J1644; J8610